=== PATIENT | male | born 1990 | race Caucasian/White ===

== ENCOUNTER 2017-05-27 19:15 | Emergency (ER) | payer SELFPAY, MEDICAID ==
[2017-05-27] MEDS: KETOROLAC 15 MG INJ IM (22:55)
[2017-05-27] MEDS: DIAZEPAM 5 MG TAB PO (22:55)
== END 2017-05-28 00:35 | disposition home or self-care (01) ==
LOC: FTE 05-28 00:35
DX: M25.561 Pain in right knee (principal); M25.571 Pain in right ankle and joints of right foot; M25.572 Pain in left ankle and joints of left foot; M54.6 Pain in thoracic spine; M54.5 Low back pain
CPT/HCPCS: 96372; 99284-25